=== PATIENT | male | born 1995 | race Caucasian/White ===

== ENCOUNTER 2022-10-05 12:43 | Emergency (ER) | payer BC ==
[~2022-10-05] VITALS: Ht 177.8 cm; Wt 95.3 kg
[2022-10-05 12:50] VITALS: BP 144/62
[2022-10-05] MEDS ORDERED: KETOROLAC 30MG VIAL (30MG/ML) IM STA (14:28)
[2022-10-05] MEDS ORDERED: ORPHENADRINE CITRATE 30 MG/ML ML IM ONE (14:30)
[2022-10-05] MEDS ORDERED: NAPR375T6 PO (15:29)
== END 2022-10-05 15:57 | disposition home or self-care (01) ==
LOC: EDH 12:43
DX: S39.012A Strain of muscle, fascia and tendon of lower back, initial encounter (principal); E78.00 Pure hypercholesterolemia, unspecified; F41.9 Anxiety disorder, unspecified; F32.A Depression, unspecified; G89.29 Other chronic pain; X58.XXXA Exposure to other specified factors, initial encounter; Y93.89 Activity, other specified; Y92.89 Other specified places as the place of occurrence of the external cause; Y99.8 Other external cause status
CPT/HCPCS: 99284; 72100; 96372; J1885; J2360